=== PATIENT | male | born 1970 | race Caucasian/White ===

== ENCOUNTER 2020-04-24 00:20 | Emergency (ER) | payer SELFPAY ==
[~2020-04-24] VITALS: Ht 165.1 cm; Wt 63.6 kg
[2020-04-24 00:23] VITALS: BP 145/96
[2020-04-24] MEDS ORDERED: LIDOCAINE 1%/EPI 1:100,000 20 ML VIAL. INJ ONE (00:45)
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
== END 2020-04-24 02:09 | disposition home or self-care (01) ==
LOC: ER 00:20
DX: S01.01XA Laceration without foreign body of scalp, initial encounter (principal); R51.9 Headache, unspecified; I10 Essential (primary) hypertension; F17.200 Nicotine dependence, unspecified, uncomplicated; F10.10 Alcohol abuse, uncomplicated; Y90.9 Presence of alcohol in blood, level not specified; Y04.0XXA Assault by unarmed brawl or fight, initial encounter; Y93.89 Activity, other specified; Y92.89 Other specified places as the place of occurrence of the external cause; Y99.8 Other external cause status
CPT/HCPCS: 12001; 70450; 72125; 99285